=== PATIENT | male | born 1955 | race Caucasian/White ===

== ENCOUNTER 2020-11-21 13:16 | Inpatient (IN) ==
[2020-11-21] MEDS ORDERED: NITROGLYCERIN SL 0.4 MG TABLET SL PRN (14:47)
[2020-11-21] MEDS ORDERED: ASPIRIN 325 MG TABLET PO STA (14:47)
[2020-11-21 15:02] LABS: Basophils % 0.6 % (0.0-0.8); Eosinophils # 0.1 10*3/uL (0.0-0.87); Eosinophils % 2.1 % (0.00-10.9); Immature Granulocytes % 0.6 %; Immature Granulocytes Absolute 0.04 #; Lymphocytes # 1.8 10*3/uL (1.4-4.0); Lymphocytes % 26.5 % (21.2-54.2); Mean Corpuscular HGB Conc 33.3 GM/DL (32-36); Mean Corpuscular Volume 93.2 FL (87-102); Mean Platelet Volume 10.5 FL (9.6-12.0); Neutrophils % 60.2 % (38.7-73.9); Platelet Count 213 T/CUMM (130-400); Red Blood Count 4.83 MC/CUMM (3.8-5.5); Red Cell Distribution Width 12.8 % (9.3-17.3); White Blood Count 6.8 T/CUMM (4-12)
[2020-11-21 15:13] LABS: Albumin 4.4 G/DL (3.4-5.0); Bilirubin,Total 0.7 MG/DL (0.2-1.0); Osmolality,Calculated 279.4 MOS/KG (273-304); Total Protein 7.4 G/DL (5.0-7.5)
[2020-11-21] MEDS ORDERED: SOTALOL 80 MG TABLET PO ONE (16:25)
[2020-11-21] MEDS ORDERED: MORPHINE 4 MG/1 ML VIAL IV PRN (16:26)
[2020-11-21] MEDS ORDERED: BISACODYL 5 MG TABLET PO PRN (16:26)
[2020-11-21] MEDS ORDERED: diphenhydrAMINE CAP 25 MG CAPSULE PO PRN (16:26)
[2020-11-21] MEDS ORDERED: MAGNESIUM SULF RIDER 2 GM in PREMIX 1 EACH IV PRN (16:26)
[2020-11-21] MEDS ORDERED: ZALEPLON 5 MG CAPSULE PO PRN (16:26)
[2020-11-21] MEDS ORDERED: MAGNESIUM SULF RIDER 4 GM in PREMIX 1 EACH IV PRN (16:26)
[2020-11-21] MEDS ORDERED: SIMETHICONE CHEW 125 MG TABLET PO PRN (16:26)
[2020-11-21] MEDS ORDERED: ONDANSETRON 4 MG/2 ML VIAL IV PRN (16:26)
[2020-11-21] MEDS ORDERED: hydrALAZINE 20 MG/1 ML VIAL IV PRN (16:31)
[2020-11-21] MEDS ORDERED: ACETAMINOPHEN 325 MG TABLET PO PRN (16:33)
[2020-11-21] MEDS: carvediloL 3.125 MG TABLET PO SCH (21:37)
[2020-11-21] MEDS: ASPIRIN EC 81 MG TABLET PO SCH (21:37)
[2020-11-21] MEDS: SOTALOL 80 MG TABLET PO SCH (22:27)
[2020-11-21] MEDS: SIMVASTATIN 20 MG TABLET PO SCH (23:17)
[2020-11-22 06:19] LABS: Basophils % 0.5 % (0.0-0.8); Eosinophils # 0.1 10*3/uL (0.0-0.87); Eosinophils % 2.3 % (0.00-10.9); Hematocrit 40.4 VOL% (42.0-52.0); Hemoglobin 14.1 GM/DL (14.0-18.0); Immature Granulocytes % 0.2 %; Immature Granulocytes Absolute 0.01 #; Lymphocytes % 31.6 % (21.2-54.2); Mean Corpuscular HGB Conc 34.9 GM/DL (32-36); Mean Corpuscular Volume 90.8 FL (87-102); Mean Platelet Volume 10.4 FL (9.6-12.0); Monocytes % 10.4 % (1.7-12.7); Platelet Count 154 T/CUMM (130-400); Red Blood Count 4.45 MC/CUMM (3.8-5.5); Red Cell Distribution Width 12.7 % (9.3-17.3); White Blood Count 6.2 T/CUMM (4-12)
[2020-11-22 06:48] LABS: Albumin 3.6 G/DL (3.4-5.0); Bilirubin,Total 1.7 MG/DL (0.2-1.0); Calcium 8.3 MG/DL (8.5-10.1); Osmolality,Calculated 283.1 MOS/KG (273-304); Potassium 3.5 MMOL/L (3.5-5.1); Total Protein 6.2 G/DL (5.0-7.5)
[2020-11-22] MEDS ORDERED: POTASSIUM CHLORIDE RIDER 10 MEQ in PREMIX 1 EACH IV PRN (07:57)
[2020-11-22] MEDS ORDERED: diphenhydrAMINE CAP 25 MG CAPSULE PO ONE (07:57)
[2020-11-22] MEDS ORDERED: MAGNESIUM SULF RIDER 2 GM in PREMIX 1 EACH IV PRN (07:57)
[2020-11-22] MEDS ORDERED: DIAZEPAM 5 MG TABLET PO ONE (07:57)
[2020-11-22] MEDS ORDERED: HEPARIN/NACL 0.9% 2 UNITS/ML 1,000 ML IV ONE (08:27)
[2020-11-22] MEDS ORDERED: LIDOCAINE 1% 20 ML VIAL ONE (08:27)
[2020-11-22] MEDS ORDERED: MIDAZOLAM 2 MG/2 ML VIAL ONE (08:43)
[2020-11-22] MEDS ORDERED: fentaNYL 100 MCG/2 ML VIAL ONE (08:44)
[2020-11-22] MEDS ORDERED: VERAPAMIL 5 MG/2 ML VIAL ONE (08:44)
[2020-11-22] MEDS ORDERED: NITROGLYCERIN DRIP 50 MG/250 ML BOTTLE IV ONE (08:44)
[2020-11-22] MEDS ORDERED: hydroCHLOROthiazide 12.5 MG CAPSULE PO SCH (09:00)
[2020-11-22] MEDS ORDERED: LOSARTAN 50 MG TABLET PO SCH (09:00)
[2020-11-22] MEDS ORDERED: ENOXAPARIN 60 MG/0.6 ML SYRINGE ONE (09:11)
[2020-11-22] MEDS ORDERED: TIROFIBAN 5,000 MCG/100 ML PREMIX IV ONE (09:26)
[2020-11-22] MEDS ORDERED: ENOXAPARIN 30 MG/0.3 ML SYRINGE ONE (09:26)
[2020-11-22] MEDS ORDERED: TIROFIBAN 5,000 MCG/100 ML PREMIX IV SCH (09:40)
[2020-11-22] MEDS ORDERED: TICAGRELOR 90 MG TABLET ONE (09:47)
[2020-11-22] MEDS ORDERED: SODIUM CHLORIDE 0.9% 1,000 ML IV SCH (10:30)
[2020-11-22] MEDS: PANTOPRAZOLE 40 MG TABLET PO SCH (10:40)
[2020-11-22] MEDS: LOSARTAN 50 MG TABLET PO SCH ×2 (10:40→20:43)
[2020-11-22] MEDS: CYANOCOBALAMIN 500 MCG TABLET PO SCH (10:40)
[2020-11-22] MEDS: carvediloL 3.125 MG TABLET PO SCH ×2 (10:40→20:43)
[2020-11-22] MEDS: SOTALOL 80 MG TABLET PO SCH ×2 (10:41→20:43)
[2020-11-22] MEDS: SIMVASTATIN 20 MG TABLET PO SCH (20:43)
[2020-11-22] MEDS: ASPIRIN EC 81 MG TABLET PO SCH (20:43)
[2020-11-22] MEDS: TICAGRELOR 90 MG TABLET PO SCH (20:44)
[2020-11-23 03:02] LABS: Calcium 8.1 MG/DL (8.5-10.1); Osmolality,Calculated 278.4 MOS/KG (273-304); Potassium 3.3 MMOL/L (3.5-5.1)
[2020-11-23 03:04] LABS: Basophils % 0.5 % (0.0-0.8); Eosinophils # 0.2 10*3/uL (0.0-0.87); Eosinophils % 2.4 % (0.00-10.9); Hematocrit 40.8 VOL% (42.0-52.0); Hemoglobin 13.8 GM/DL (14.0-18.0); Immature Granulocytes % 0.4 %; Immature Granulocytes Absolute 0.03 #; Lymphocytes % 26.6 % (21.2-54.2); Mean Corpuscular HGB Conc 33.8 GM/DL (32-36); Mean Corpuscular Volume 92.1 FL (87-102); Monocytes % 10.2 % (1.7-12.7); Neutrophils % 59.9 % (38.7-73.9); Platelet Count 163 T/CUMM (130-400); Red Blood Count 4.43 MC/CUMM (3.8-5.5); Red Cell Distribution Width 12.7 % (9.3-17.3); White Blood Count 7.5 T/CUMM (4-12)
[2020-11-23] MEDS ORDERED: POTASSIUM CHLORIDE 20 MEQ TABLET PO PRN (07:04)
[2020-11-23] MEDS ORDERED: POTASSIUM CHLORIDE 20 MEQ TABLET PO ONE (07:49)
[2020-11-23 08:13] VITALS: BP 143/90
[2020-11-23] MEDS: carvediloL 3.125 MG TABLET PO SCH (09:00)
[2020-11-23] MEDS: CYANOCOBALAMIN 500 MCG TABLET PO SCH (09:00)
[2020-11-23] MEDS: SOTALOL 80 MG TABLET PO SCH (09:00)
[2020-11-23] MEDS: TICAGRELOR 90 MG TABLET PO SCH (09:01)
[2020-11-23] MEDS: LOSARTAN 50 MG TABLET PO SCH (09:01)
[2020-11-23] MEDS: PANTOPRAZOLE 40 MG TABLET PO SCH (09:01)
== END 2020-11-23 11:42 | disposition home or self-care (01) | DRG 247 ==
LOC: N.ED 13:16 → N.EDINP 16:26 → N.TELES 22:45
PROVIDERS: ADMIT Internal Medicine Interventional Cardiology; ATTEND Internal Medicine Interventional Cardiology
PROC: CLCCHCL (ICD-10-PCS; 2020-11-22 11:15)